=== PATIENT | male | born 1980 | race African-American/Black ===

== ENCOUNTER 2017-06-01 07:48 | Emergency (ER) | payer SELFPAY ==
[~2017-06-01] VITALS: Ht 182.9 cm; Wt 84.0 kg
[2017-06-01 07:51] VITALS: BP 124/79; PULSE 66; RESP 18; TEMP 98.3; O2SAT 97
[2017-06-01] MEDS ORDERED: TRAM50 PO (08:09)
[2017-06-01] MEDS ORDERED: PERI0.126 SWISH-SPIT (08:09)
[2017-06-01] MEDS ORDERED: CLIN300C5 PO (08:09)
[2017-06-01] MEDS ORDERED: IBUP1TAB7 PO (08:09)
--- NOTE | 2017-06-01 08:09 | PD ---
HPI Chief Complaint: Oral / Dental Pain or Problem Time Seen by Provider: 07:59 Travel History International Travel<30 days: No Contact w/Intl Traveler<30days: No Traveled to known affect area: No History of Present Illness HPI 36-year-old male presents to the emergency department for evaluation of tooth pain. Patient states 1 week ago while [place] he was eating and broke his right mandibular second molar. He has been having worsening pain since it has noticed swelling around the tooth. He believes it is infected. Pain is constant, throbbing, 6 out of 10. He has had no fever or chills. No other trauma. No other symptoms to report at this time. PFSH Past Medical History Blood Disorders: No Anxiety: No Depression: No Heart Rhythm Problems: No Cancer: No Cardiovascular Problems: No High Cholesterol: No Chemotherapy: No Chest Pain: No Congestive Heart Failure: No COPD: No Diabetes: No Diminished Hearing: No Endocrine: No Gastrointestinal Disorders: Yes (HOSPITALIZE IN 2013 FOR GASTRITIS PER MOM) Genitourinary: No Immune Disorder: No Musculoskeletal: No Neurologic: No Psychiatric: No Reproductive: No Respiratory: No Radiation Therapy: No Sleep Apnea: No Thyroid Disease: No Family History Family Hypercholesterolemia: Yes Social History Alcohol Use: No Tobacco Use: No Substance Use: Yes (MARIJUANA ) Allergies-Medications (Allergen,Severity, Reaction): Coded Allergies: penicillin G (Unverified Allergy, Unknown, HIVES, 01/24/17) Reported Meds & Prescriptions Reported Meds & Active Scripts Active No Active Prescriptions or Reported Medications Review of Systems Except as stated in HPI: all other systems reviewed are Neg Physical Exam Narrative GENERAL: Well-nourished, well-developed male patient in no acute distress SKIN: Focused skin assessment warm/dry. HEAD: Normocephalic. No erythema or edema EYES: No scleral icterus. No injection or drainage. DENTAL: No loose teeth. The right second mandibular molar has a large dental caries with associated gingival erythema and edema. There is no appreciable abscess. No malocclusion. NECK: Supple, trachea midline. No JVD or lymphadenopathy. CARDIOVASCULAR: Regular rate and rhythm without murmurs, gallops, or rubs. RESPIRATORY: Breath sounds equal bilaterally. No accessory muscle use. Data Data Last Documented VS Vital Signs Date Time Temp Pulse Resp B/P (MAP) Pulse Ox O2 Delivery O2 Flow Rate FiO2 06/01/17 07:51 98.3 66 18 124/79 (94) 97 Room Air MDM Medical Decision Making Medical Screen Exam Complete: Yes Emergency Medical Condition: Yes Medical Record Reviewed: Yes Differential Diagnosis Dental caries versus pulpitis versus gingivitis versus periodontal disease versus oral abscess Narrative Course 36-year-old male presents to emergency department for evaluation of dental pain. Patient does have a large dental caries in the right jugular second molar with associated gingival erythema and edema. I do not appreciate an abscess. Patient will be treated for pain, discharged home on oral antibiotic and additional pain control. He is encouraged to seek dental evaluation as soon as possible and return immediately with any acute worsening symptoms. Diagnosis Primary Impression: Dentalgia Additional Impressions: Dental caries Gingivitis Referrals: Dentist Primary Care Physician Patient Instructions: Dental Caries (DC), General Instructions Additional Instructions: Seek dental evaluation as soon as possible Follow-up with a primary care provider Return immediately with any acute worsening symptoms Med/Other Pt SpecificInfo: Prescription(s) given Scripts Chlorhexidine Gluconate (Mouth) Liq (Peridex Liq) 0.12% Soln 15 ML SWISH-SPIT BID, #473 ML 0 Refills Prov: Patricia Murry 06/01/17 Clindamycin (Clindamycin) 300 Mg Cap 300 MG PO Q6H for Infection for 10 Days, #40 CAP 0 Refills Prov: Patricia Murry 06/01/17 Tramadol (Ultram) 50 Mg Tab 50 MG PO Q6H Y for PAIN GREATER THAN 5, #20 TAB 0 Refills Prov: Patricia Murry 06/01/17 Ibuprofen (Ibuprofen) 800 Mg Tab 800 MG PO Q8H Y for Pain/Inflammation, #30 TAB 0 Refills Prov: Patricia Murry 06/01/17 Disposition: 01 DISCHARGE HOME Condition: Stable Patricia Murry Jun 01, 2017 08:09
[2017-06-01] MEDS ORDERED: IBUPROFEN 800 MG TAB PO ONE (08:15)
== END 2017-06-01 08:14 | disposition home or self-care (01) ==
LOC: NEPD 07:48
DX: K02.9 Dental caries, unspecified (principal); K05.10 Chronic gingivitis, plaque induced; Z88.0 Allergy status to penicillin
CPT/HCPCS: 99284

== ENCOUNTER 2017-09-16 17:10 | Emergency (ER) | payer SELFPAY ==
[~2017-09-16] VITALS: Ht 180.3 cm; Wt 80.0 kg
[~2017-09-16 17:10] MED LIST: CLIN300C5 PO; IBUP1TAB7 PO; PERI0.126 SWISH-SPIT; TRAM50 PO
[2017-09-16 17:20] VITALS: BP 132/72; PULSE 110; RESP 16; TEMP 99.7; O2SAT 97
== END 2017-09-16 20:35 | disposition left against medical advice (07) ==
LOC: NED 17:10
DX: H92.02 Otalgia, left ear (principal); Z53.21 Procedure and treatment not carried out due to patient leaving prior to being seen by health care provider
CPT/HCPCS: 99281